=== PATIENT | female | born 1990 ===

== ENCOUNTER → 2020-06-02 14:26 | Outpatient (BNVA) | payer OTHER, SELFPAY | PROVIDERS: Visit Provider Obstetrics & Gynecology | DX: N89.8 Other specified noninflammatory disorders of vagina (principal); Z30.9 Encounter for contraceptive management, unspecified; L28.0 Lichen simplex chronicus; N72 Inflammatory disease of cervix uteri | CPT/HCPCS: 87512; 87799 ==